=== PATIENT | female | born 1990 | race Caucasian/White ===

== ENCOUNTER 2021-04-07 12:00 | Outpatient (CLI) | payer BC, SELFPAY ==
[2021-04-07 12:21] LABS: Hematocrit 36.5 % (37.0-47.0); Mean Corpuscular HGB Conc 32.9 g/dl (32-36); Mean Corpuscular Hemoglobin 29.7 pg (26-34); Mean Corpuscular Volume 90.3 fl (80-100); Mean Platelet Volume 9.2 fl (7.4-10.4); Platelet Count Result 208 k/mm3 (150-375); Red Blood Count 4.04 M/mm3 (4.2-5.4); Red Cell Distribution Width 12.7 % (11.5-14.5); White Blood Count 9.9 K/mm3 (4.5-10.0)
[2021-04-08 10:17] LABS: Rapid Plasma Reagin Non-Reactive (NonReactive)
== END 2021-04-07 12:01 | disposition home or self-care (01) ==
PROVIDERS: Visit Provider Obstetrics & Gynecology
DX: Z34.92 Encounter for supervision of normal pregnancy, unspecified, second trimester (principal); Z3A.00 Weeks of gestation of pregnancy not specified
CPT/HCPCS: 36415; 85027; 86592; 86850; 86900; 86901

== ENCOUNTER 2021-04-08 09:49 | Inpatient (IN) | payer BC, SELFPAY ==
[2021-04-08] VITALS (61 sets, daily range): BP systolic 81–166; BP diastolic 38–126; PULSE 33–242; RESP 14–18; TEMP 36.1–37.2; O2SAT 73–100; BMI 31.8
[2021-04-08] MEDS: LACTATED RINGERS 1,000 ML 999 ML IV CONT (10:31)
[2021-04-08] MEDS: LACTATED RINGERS 1,000 ML 125 ML IV CONT (11:44)
--- NOTE | 2021-04-08 11:58 | PM.IMHP ---
H&P: HPI History of Present Illness Date/Time: 04/08/21 07:51 Hiwot is a 30yo @ 39.0wks (VICENTA 04/15/21) who presents for schedueld repeat section. She reports good movement. No ctx, vb or LOF. She has had regular care. Her is complicated by: - Previous c/s; desires repeat - [place] non-immune Chief Complaint: scheduled repeat c/s Review of Systems Review of Systems: All systems reviewed & are unremarkable except as noted in HPI and below PMFSH Family History Family History Grandparent Lung cancer Melanoma Mother Melanoma Social History Social History Smoking status: Never smoker Substance use: never Spiritual care concerns: No Meds Home Medications and Allergies Home Medications Medication Instructions Recorded Confirmed Type prenat.vits,su,hos-zddh-arvdy 1 tablet PO DAILY 04/08/21 04/08/21 History [ Vitamin] Allergies Allergy/AdvReac Type Severity Reaction Status Date / Time Sulfa (Sulfonamide Allergy Hives Verified 03/18/21 14:27 Antibiotics) Exam Const: General: cooperative, healthy appearing, comfortable and no acute distress Resp: Effort & Inspection: normal respiratory effort Cardio: Rate: regular rate GI: Inspection: non-distended GI Palp: No abdominal tenderness and Yes Soft to palpation : Other: FHT's: 135's/ mod donavon/ + accels/ no decels - cat 1 TOCO: irregular ctx's Presentation: cephalic Membranes: intact Skin: General skin exam: normal color Neuro: General: patient oriented x3 Extrem: General: normal to inspection Psych: Appearance: grossly normal Affect: normal affect Attitude: cooperative Assessment and Plan Assessment and plan (1) Previous section complicating : Code(s): O34.219 - Maternal care for unspecified type scar from previous delivery Status: Acute (2) : Qualifiers: Weeks of gestation: 39 weeks Qualified Code(s): Z3A.39 - 39 weeks gestation of Code(s): Z34.90 - Encounter for supervision of normal , unspecified, unspecified trimester Status: Acute Additional Plan - Proceed with repeat section due to h/o previous, desiring repeat - Risks/benefits/alternatives discussed - Ancef pre-op - Anesthesia aware - GBS negative
--- NOTE | 2021-04-08 11:58 | WPDHPUPDATE1 ---
History and Physical Update Update Date/Time: 04/08/21 11:58 History and Physical has been reviewed, including an updated exam of the patient. There are NO changes in the patient's condition. Risks, benefits, and alternatives have been discussed and questions answered. Patient agrees to proceed with procedure.
--- NOTE | 2021-04-08 11:59 | WPDHPUPDATE1 ---
History and Physical Update Update Date/Time: 04/08/21 11:59 History and Physical has been reviewed, including an updated exam of the patient. There are NO changes in the patient's condition. Risks, benefits, and alternatives have been discussed and questions answered. Patient agrees to proceed with procedure.
[2021-04-08] MEDS: ceFAZolin 2 GM/D5W 50 ML 2 GM/50 ML BAG IVPB (12:02)
--- NOTE | 2021-04-08 12:10 | P.PNAN_ITS ---
Anes - Initial Pre Proc Eval Procedure: Operation Date: 04/08/21 12:00 Proposed Procedures p Repeat Section - Karime Cooley MD Date/Time: 04/08/21 12:10 Surgeon: Karime Cooley MD Pre Op Diagnosis: Repeat Section Patient Data Age: 30 Gender: F Height: 1.63 m Weight: 84 kg Last Vital Signs Temp 37.2 C 04/08/21 10:30 Pulse 92 04/08/21 10:30 BP 103/69 04/08/21 10:30 Allergies Allergy/AdvReac Type Severity Reaction Status Date / Time Sulfa (Sulfonamide Allergy Hives Verified 03/18/21 14:27 Antibiotics) Home Medications Medication Instructions Recorded Confirmed Type prenat.vits,su,xtq-gayi-ycvwg 1 tablet PO DAILY 04/08/21 04/08/21 History [ Vitamin] Patient hx anesthesia problems: none Family hx anesthesia problems: none Results Review: All pre-operative results and documents have been reviewed as part of the pre-operative evaluation. [facility] Surgical History Surgical History (Updated 04/08/21 @ 12:10 by Yasir Rush MD) History of section Family History Family History Grandparent Lung cancer Melanoma Mother Melanoma Social History Social History Smoking status: Never smoker Substance use: never Spiritual care concerns: No Anes - Eval Final PreProcedure Day of Procedure 04/08/21 12:10 Patient weight: overweight Heart: regular rate and rhythm Lungs: clear to auscultation Airway: Mallampati scale class 1 Neurological: alert and oriented Last oral intake: >/= 8 hours ASA classification: II Emergent: no Anesthetic plan: proceed Anesthesia type and monitoring: regional and standard monitoring Results Review: All pre-operative results and documents have been reviewed as part of the pre-operative evaluation. Informed Consent: The patient's anesthetic plan and its attendant risks and benefits were discussed with the patient/family/POA. Questions were solicited and answers provided to the satisfaction of the patient/family/POA.
[2021-04-08] MEDS: KETOROLAC 30 MG/ML VIAL (*BKC) IV PUSH ×2 (12:46→20:01)
--- NOTE | 2021-04-08 13:23 | PM.OBPRVD ---
OB - Delivery Note Procedure Delivery date: 04/08/21 Procedure: Procedures Operation Date: 04/08/21 12:00 <No data on this case meets the specified criteria> Route of delivery: Quantitative Blood Loss (ml): 585 Anesthesia type: Epidural Disposition: floor [place] Baby Date of : 04/08/21 Time of : 12:40 Weeks of gestation at delivery: 39 gender: Female Weight (pounds): 6 Weight (ounces): 11 presentation: vertex position: Right Occiput Transverse Placenta delivery description: Expressed cord vessel description: 3 Vessels score one minute: 9 score five minutes: 9 Narrative: She was counseled on all risks and benefits in detail. She was taken to the operating room where spinal epidural was placed. She was then prepped and draped in the normal sterile fashion. She received 2g Ancef and a time out was performed. A Pfannenstiel incision was made in the skin and carried down to the underlying fascia. The fascia was nicked on either side of the midline and the fascial incision was extended laterally and superiorly. The fascia was then elevated and the underlying rectus muscles were dissected off the fascia, superiorly and inferiorly. The rectus muscles were then in the midline and the peritoneum was entered using hemostats. Once adequate exposure was obtained, a Mobius self retractor was placed within the abdomen. A bladder flap was created. A low transverse incision was made on the lower uterine segment and clear fluid was noted. The occiput was brought to the hysterotomy and the head was easily delivered. The shoulder and body then followed without complications. The infant had spontaneous cry and the mouth and nose were bulb suctioned. The cord was clamped and cut and the was handed off to the awaiting pediatric nurse. A segment of the cord was collected for cord gases. The remaining cord blood was collected for typing. With pitocin infusing, the placenta delivered with gentle traction on the cord without complications. The uterus was then cleared out of all clots and debris using a clean, moist lap. The hysterotomy was then repaired in a running, interlocking fashion using 0 Vicryl. A second layer imbricating suture was then made using 0 Vicryl. An additional 0 Vicryl figure of eight stitch was placed, and the hysterotomy was found to be hemostatic and good uterine tone was noted. The bilateral adnexa were examined and found to be normal. The pelvis was cleared of all clots and fluid. The Mobius retractor was removed from the abdomen. The peritoneum, muscle, and fascia were examined and made hemostatic with bovie cautery. The fascia was then repaired using two separate 0 Vicryl sutures in a running fashion. The subcutaneous tissue was then irrigated and made hemostatic with bovie cautery. The subcutaneous tissue was then reapproximated using 2-0 Vicryl. The skin was then closed using 4-0 Monocryl in a running subcuticular fashion. Sponge, lap, needle and instrument counts were correct at the end of the procedure x2. The patient tolerated the procedure well and was taken to recovery in a stable condition.
[2021-04-08] MEDS: OXYTOCIN 30 UNITS/NS 500 ML 30 UNITS/500 ML BAG 125 UNITS IV CONT (15:00)
--- NOTE | 2021-04-08 15:39 | OBPPTRN ---
Patient transferred to post room #279 via stretcher. Support person present. Oriented to unit, room, information board, rooming in, admission packet and security measures. Patient verbalizes understanding.
[2021-04-08] MEDS: HYDROcodone/acetaminophen (*CRX) 5-325 MG TABLET 1 TAB PO ×3 (16:56→23:11)
[2021-04-08] MEDS: DEXTROSE 5%/0.45% SOD CHL 1,000 ML 125 ML IV CONT (19:14)
[2021-04-08] MEDS: SIMETHICONE 80 MG TAB.CHEW PO (23:10)
[2021-04-09] MEDS: IBUPROFEN 600 MG TABLET PO ×3 (04:40→18:58)
[2021-04-09] MEDS: HYDROcodone/acetaminophen (*CRX) 5-325 MG TABLET 1 TAB PO ×2 (04:41→12:18)
[2021-04-09 04:50] VITALS: BP 105/61; PULSE 75; RESP 16; TEMP 36; O2SAT 99
[2021-04-09 05:30] LABS: Basophils Absolute Auto 0.1 K/mm3 (0.0-0.1); Basophils Percent Auto 0.5 % (0.2-1.2); Eosinophils Absolute Auto 0.2 K/mm3 (0-0.3); Hematocrit 31.8 % (37.0-47.0); Hemoglobin 10.2 g/dL (12.0-15.0); Immature Granulocyte Absolute 0.06 K/mm3 (0.00-0.031); Immature Granulocyte Percent A 0.6 % (0-0.5); Lymphocytes Absolute Auto 1.97 K/mm3 (0.9-3.2); Lymphocytes Percent Auto 18.4 % (18.3-44.2); Mean Corpuscular HGB Conc 32.1 g/dl (32-36); Mean Corpuscular Hemoglobin 29.7 pg (26-34); Mean Corpuscular Volume 92.4 fl (80-100); Mean Platelet Volume 9.2 fl (7.4-10.4); Monocytes Absolute Auto 0.8 K/mm3 (0.1-0.6); Monocytes Percent Auto 7.7 % (2.6-8.5); Neutrophils Absolute Auto 7.6 K/mm3 (1.3-6.7); Neutrophils Percent Auto 70.8 % (45.5-73.1); Platelet Count Result 175 k/mm3 (150-375); Red Blood Count 3.44 M/mm3 (4.2-5.4); Red Cell Distribution Width 12.9 % (11.5-14.5); White Blood Count 10.7 K/mm3 (4.5-10.0)
[2021-04-09 07:20] VITALS: BP 102/62; PULSE 75; RESP 16; TEMP 36.3; O2SAT 100
--- NOTE | 2021-04-09 09:48 | WPDANLDNPN2 ---
Anes-Prog Note L&D-Neuraxial Date/Time: 04/09/21 09:48 Neuraxial medications: intrathecal PF morphine Opiod-related complaints: none Patient feedback: Patient satisfied with post-operative pain management.
--- NOTE | 2021-04-09 09:48 | WPDANLDPN2 ---
Anes-Prog Note L&D Date/Time: 04/09/21 09:48 Comfortable throughout: section Neuraxial method: spinal Epidural/Spinal procedure site: clean & non-tender Neuro status: Neuro function grossly intact. Cardiovascular status: normal Respiratory status: normal Airway patency: baseline Mental status: baseline Post-Op hydration status: normal Vital Signs: Last Vital Signs Temp 36.3 C L 04/09/21 07:20 Pulse 75 04/09/21 07:20 Resp 16 04/09/21 07:20 BP 102/62 04/09/21 07:20 Pulse Ox 100 04/09/21 07:20 Pain score (VAS): 0 I/O: Intake & Output 04/08/21 04/09/21 04/09/21 23:59 07:59 15:59 Intake Total 1900 1450 Output Total 1100 1950 Balance 800 -500 Post-procedural complaints: none Patient feedback: Patient satisfied with anesthetic care.
--- NOTE | 2021-04-09 10:50 | PM.OBPNVD ---
OB - PN: Subj Subjective Date/time seen: 04/09/21 10:50 POD#1 Hiwot reports doing well today. She reports her pain is controlled with the meds. Her bleeding is light. She has already tolerated regular diet, voided, passed gas, and ambulated. She is breast feeding w/o issue. She would like to go home tomorrow. She denies CP, SOB, fever, chills, N/V, palpitations, JIMENEZ, or dizziness. OB - PN: Obj Data Labs CBC & Chem 7: 04/09/21 04:51 Labs: Laboratory Results - last 24 hr 04/09/21 04:51 WBC 10.7 H RBC 3.44 L Hgb 10.2 L Hct 31.8 L MCV 92.4 MCH 29.7 MCHC 32.1 RDW 12.9 Plt Count 175 MPV 9.2 Immature Gran % (Auto) 0.6 H Neut % (Auto) 70.8 Lymph % (Auto) 18.4 [place] % (Auto) 7.7 Eos % (Auto) 2.0 Baso % (Auto) 0.5 Lymph # (Auto) 1.97 [place] # (Auto) 0.8 H Eos # (Auto) 0.2 Baso # (Auto) 0.1 Abs Immat Gran (auto) 0.06 H Absolute Neuts (auto) 7.6 H Absolute Nucleated RBC 0.0 Nucleated RBC % 0.0 OB - PN A/P Assessment and Plan (1) Status post repeat low transverse section: Code(s): Z98.891 - History of uterine scar from previous surgery Status: Acute Plan day: 1 Plan: routine care Comments: - Discharge home tomorrow - Meeting all post-op milestones - Pelvic rest, no heavy lifting, incision care - ER return precautions: bleeding, fever, HTN, n/v/abd pain Time Spent With Patient Time: Total time spent is greater than 50% in coordination of care (as documented) at patient's floor/unit and/or counseling patient: Review of Systems Review of Systems: All systems reviewed & are unremarkable except as noted in HPI and below (HPI) Exam Const: General: cooperative, healthy appearing, comfortable and no acute distress Resp: Effort & Inspection: normal respiratory effort Auscultation: clear to auscultation bilaterally Cardio: Rate: regular rate GI: Inspection: normal to inspection, non-distended and incision (covered with clean dressing) GI Palp: No abdominal tenderness and Yes Soft to palpation Auscultation: normal bowel sounds : Other: fundus firm Skin: General skin exam: normal color Neuro: General: patient oriented x3 Extrem: General: normal to inspection Psych: Appearance: grossly normal Affect: normal affect Attitude: cooperative
[2021-04-09] MEDS: DOCUSATE SODIUM 100 MG CAPSULE PO (17:25)
[2021-04-09] MEDS: HYDROcodone/acetaminophen (*CRX) 10-325 MG TABLET 1 TAB PO ×2 (18:58→22:26)
[2021-04-09 19:00] VITALS: BP 106/62; PULSE 75; RESP 16; TEMP 36.6
--- NOTE | 2021-04-09 19:00 | PC.NURSE ---
Patient viewed the discharge video Mother & Baby Care, The First Two Weeks online. Patient was given the opportunity and encouraged to ask questions. Patient verbalized understanding of information shared and has been given the mother/baby guide for home reference.
[2021-04-10] MEDS: SIMETHICONE 80 MG TAB.CHEW PO ×2 (04:47→07:42)
[2021-04-10] MEDS: IBUPROFEN 600 MG TABLET PO ×2 (04:47→11:14)
[2021-04-10] MEDS: HYDROcodone/acetaminophen (*CRX) 10-325 MG TABLET 1 TAB PO (04:47)
[2021-04-10] MEDS: HYDROcodone/acetaminophen (*CRX) 5-325 MG TABLET 1 TAB PO ×2 (07:42→11:14)
[2021-04-10] MEDS: MULTIVIT/MIN/PREN/FOL AC/IRON TABLET 1 TAB PO (07:42)
[2021-04-10] MEDS: DOCUSATE SODIUM 100 MG CAPSULE PO (07:42)
[2021-04-10 08:00] VITALS: BP 126/70; PULSE 79; RESP 18; TEMP 36.4
--- NOTE | 2021-04-10 08:34 | PC.NURSE ---
Self care and infant care discharge instructions given including follow up visit date and time. Pt. verbalized understanding. No questions or concerns voiced. Very pleasant and anxious for discharge.
[2021-04-12 10:49] VITALS: BP 120/81; PULSE 81; RESP 20; TEMP 37; O2SAT 98
--- NOTE | 2021-04-17 13:43 | PM.OBDSVD ---
DS: Admitting Diagnosis Discharge Date 04/10/21 Admitting Diagnosis scheduled repeat section DS: Discharge Diagnosis Discharge Diagnosis (1) Status post repeat low transverse section: Code(s): Z98.891 - History of uterine scar from previous surgery Status: Acute OB - DS: Summary OB Procedures : Ultrasound OB Procedures Intrapartum: low cervical, transverse OB Procedures: : None Peripartum Data Delivery Method: Section Procedures: Procedures Operation Date: 04/08/21 12:00 Actual Procedure Side Surgeon p Repeat Section Karime Cooley MD complications: none 1: Gender: Female Disposition of : home Status at Discharge Functional status at discharge: independent ambulation Overall status at discharge: patient is back to baseline Time Spent with Patient Time attestation: Total time spent providing and/or coordinating discharge services: Time spent: Less than 30 minutes Exam Const: General: cooperative, healthy appearing, comfortable and no acute distress Resp: Effort & Inspection: normal respiratory effort Auscultation: clear to auscultation bilaterally Cardio: Rate: regular rate GI: Inspection: non-distended and incision (covered with clean dressing) GI Palp: No abdominal tenderness and Yes Soft to palpation Auscultation: normal bowel sounds : Other: fundus firm Skin: General skin exam: normal color Neuro: General: patient oriented x3 Extrem: General: normal to inspection Psych: Appearance: grossly normal Affect: normal affect Attitude: cooperative Discharge Plan Discharge Attending physician on discharge: Karime Cooley Consulting providers: Yasir Rush Discharging Clinician: Karime Cooley Anticipated Discharge Date/Time: 04/10/21 11:00 Patient Disposition: Home, Self-Care Activity: may shower and pelvic rest Diet: as tolerated and regular Discharge Instructions: no heavy lifting >10lbs; remove dressing by 04/14/21 Education: Mom and Baby Guide Given to: Mother Follow-Up: Call your delivering provider's office for an appointment to be seen in: 2 Week Mom and baby should come to the [facility] for the follow-up appointment. Appointment Date/Time: Monday, April 12, 2021 at 11:00 am What to expect at your follow-up visit: Blood Pressure Check Physical Assessment Call [phone] if you are unable to keep your appointment time. BREAST CARE: * Wear a snug supportive bra. * For engorgement discomfort: Breast Feeding: * Apply warm moist washcloths * Express milk as needed to relieve engorgement * Wear loose clothing Bottle Feeding: * May apply ice packs * For sore nipples: * Identify correct latch-on * Apply warm moist washcloths before and after nursing * Air dry nipples after nursing * May apply Lansinoh cream to nipples ABDOMINAL INCISION: (if applicable) * Allow incision to air dry * Do NOT use lotions for powders on your incision * When showering, allow soap and water to run over the incision, but do not wash incision EPISIOTOMY/PERINEAL CARE: * Until bleeding stops, use your avril bottle after urinating * Change your pad frequently throughout the day ACTIVITY: * Rest as much as possible. * Do not exercise or lift anything heavier than your baby (such as laundry or other children.) * Avoid stairs or driving as much as possible. * Do not put anything into the vagina. No douching, tampons, or sexual activity until seen by physician. NOTIFY PHYSICIAN IF YOU HAVE ANY QUESTIONS OR IF ANY OF THE FOLLOWING SYMPTOMS OCCUR: * If your incision becomes red, swollen, or more painful than what you have experienced in the hospital. * If your vaginal bleeding becomes foul smelling. * If your vaginal blee
== END 2021-04-10 11:27 | disposition home or self-care (01) | DRG 788 ==
LOC: ANHLDR 09:55 → ANHOB2 15:44
PROVIDERS: Admitting Provider Obstetrics & Gynecology; Visit Provider Obstetrics & Gynecology
PROC: 10D00Z1 Extraction of Products of Conception, Low, Open Approach (ICD-10-PCS; CPT 59514; principal; 2021-04-08 12:00)
DX: O34.219 Maternal care for unspecified type scar from previous cesarean delivery (principal); Z3A.39 39 weeks gestation of pregnancy; Z37.0 Single live birth; Z23 Encounter for immunization
CPT/HCPCS: 36415; 85025; 85027; 86592; 86850; 86900; 86901; 90471; 90653; A9270; G0008; J0131; J0690; J1885; J2175; J2274; J2405; J2590; J7120